=== PATIENT | male | born 1975 | race Caucasian/White ===

== ENCOUNTER 2017-07-12 10:06 | Emergency (ER) | payer OTHER, BC ==
[~2017-07-12 10:06] MED LIST: Sodium Chloride 0.9% 10 ML Syringe FLUSH PRN
[2017-07-12] MEDS ORDERED: Sodium Chloride 0.9% 1,000 ML IV SCH (10:08)
[2017-07-12] MEDS ORDERED: Sodium Chloride 0.9% 250 ML IV SCH ×2 (10:08)
--- NOTE | 2017-07-13 14:05 | ER ---
DATE SEEN: 07/12/2017 Trauma Code called. A. The patient's airway open, patent, and protected. The patient is talking to us, alert and oriented. B. Bilateral breath sounds normal. There is no tracheal deviation or tracheal tug. C. Blood pressure 187/96 and respiratory rate 20 approximately. D Peripheral pulses intact. No deformity or history of explosion. No compromise of vascular status. No abnormality or stepoff of skin. No paresis, weakness, numbness, or compromise of upper and lower extremities. Moves all upper and lower extremities easily. E. Exposure, moderate erythema on the scalp. He is a bald-headed fellow with extensive, on the face and head more so than the more distal torso, down to the mid-distance between the umbilicus and the symphysis, erythema, generalized. No focal blisters. PERTINENT HISTORY: The patient was at work and was unloading hydrous ammonia tanker. The valve was open and splashed on his face. There was no immediate ammonia safety kit present. He had to run down the hallway, and he was pushed under a shower and upper torso clothes removed. He has his pants and underwear on at present. He was flushed for 15 minutes. The patient denies shortness of breath or cough. His skin is burning. He has mild soreness in his ears. Denies upper and lower body discomfort or shoulder or back pain, other than baseline. No history of explosion and did not fall down. No loss of consciousness. ALLERGIES: No allergies. SOCIAL HISTORY: Nonsmoker. No illicit drug use. He does not drink alcohol. He is . He lives in [place]. MEDICATIONS: He is not on medications. PHYSICAL EXAMINATION: VITAL SIGNS: As noted above, 187/96, heart rate 110, respirations 18 to 20, and temperature 97.9 axillary. GENERAL: The patient has generalized erythema of entire body, down to the level of his mid-distance between the umbilicus and his symphysis with decreasing erythema, has progressed more from cephalad to caudad direction. The patient is talking and breathing. HEENT: He has increased secretions in his mouth. His eyes are sore. LUNGS: Clear. HEART: Without murmur. ABDOMEN: Soft. No guarding. No abdominal discomfort. CHEST: No chest wall discomfort. EXTREMITIES: Without abnormality. Deep tendon reflexes in upper and lower extremities normal. EMERGENCY ROOM COURSE: Immediately on arrival, Jt lens were placed after 2 drops of tetracaine placed in each eye. Oral secretions suctioned from his mouth. He did not require intubation. Two IVs were placed. The patient arrived at 1004 hours and [facility] was here at 1014 hours. The patient left at [address] [facility]. Tetanus was not addressed. DIAGNOSES: 1. Hydrous ammonia inhalation and splash on his body, more cephalad than distal. 2. Airway protected presently, however, will be watched visually. 3. Obese, but mesomorphic. 4. Transient elevated blood pressure secondary to stress and inhalation. 5. 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 /[id number] AICHA/SUAD
== END 2017-07-12 10:19 ==
LOC: FB.ED 10:06
DX: T59.891A Toxic effect of other specified gases, fumes and vapors, accidental (unintentional), initial encounter (principal); L53.0 Toxic erythema; R03.0 Elevated blood-pressure reading, without diagnosis of hypertension
CPT/HCPCS: 99285; J7040; J7050